=== PATIENT | female | born 1985 | race Caucasian/White ===

== ENCOUNTER 2021-11-30 16:36 | Outpatient (REF) | payer OTHER, SELFPAY ==
--- NOTE | ~2021-11-30 | MR_ITS ---
EXAMINATION: MR BRAIN WITHOUT CONTRAST CLINICAL INFORMATION: Migraine. COMPARISON: None available. TECHNIQUE: MRI of the brain was obtained using routine sequences without contrast. FINDINGS: No focal restricted diffusion is demonstrated to suggest acute or subacute cerebral ischemia. No evidence of acute or chronic hemorrhagic products on heme-sensitive imaging. Normal parenchymal signal characteristics. The ventricles are normal in morphology and size. No abnormal mass effect. No midline shift. Normal appearance of the pituitary gland. Normal positioning of the cerebellar tonsils. Normal arterial and venous vascular flow voids are present. Normal, homogeneous marrow signal. Mild mucosal thickening of the paranasal sinuses. Mild rightward nasal septal deviation. No signal abnormalities within the mastoids. MR/MR head/brain wo con IMPRESSION: 1. No acute intracranial abnormalities. 2. No MRI abnormalities to explain the patient's symptoms.
== END 2021-11-30 16:37 | disposition home or self-care (01) ==
LOC: HO.MRI 16:36
PROVIDERS: Visit Provider Nurse Practitioner Family
DX: G43.009 Migraine without aura, not intractable, without status migrainosus (principal); H53.9 Unspecified visual disturbance
CPT/HCPCS: 70551

== ENCOUNTER 2023-02-04 11:02 | Outpatient (AMB) | payer OTHER, SELFPAY ==
--- NOTE | 2023-02-04 11:30 | MHC.OFFVIS ---
Intake Vital Signs 02/04/23 11:31 Height 5 ft 7 in Weight 134 lb 2 oz BMI 21.0 BP 110/82 Blood Pressure Location Rt brachial Position Sitting Intake Visit Reasons: follow up headache-Confirmed Intake Note: Patient presents for follow up headache. I'm on a new prescription ubrelvy and its working for me. Allergies No Known Allergies Allergy (Verified 02/04/23 11:32) Medication List - Last Reconciled 02/04/23 by ISABELLA Interiano amitriptyline 10 - 20 mg (1 - 2 x 10 mg) PO BEDTIME 30 days levonorgestrel-ethinyl estrad 0.1-20 mg-mcg 1 tab PO DAILY magnesium oxide 400 mg PO BEDTIME 30 days naratriptan take 1/2 - 1 tab at onset of headache; if no relief may repeat 1 tab after at least 4 hrs; max = 2 tabs/24 hrs orally PRN; 30 days naratriptan take 1/2 - 1 tab at onset of headache; if no relief may repeat 1 tab after at least 4 hrs; max = 2 tabs/24 hrs orally PRN; 30 days riboflavin (vitamin B2) 400 mg PO DAILY 30 days rizatriptan 5 - 10 mg (0.5 - 1 x 10 mg) PO Q2H PRN 21 days sumatriptan succinate (Imitrex) take 1 tab at onset of headache; if no relief may repeat 1 tab after at least 2 hrs; max = 4 tabs/24 hr PO topiramate 25 mg PO BID ubrogepant (Ubrelvy) 50 - 100 mg (0.5 - 1 x 100 mg) PO ONCE PRN 30 days zolmitriptan (Zomig) take 1 tab at onset of headache; if no relief, may repeat 1 tab after at least 2 hrs; max = 2 tabs/24 hrs PO 30 days HPI HPI Comments History of Present Illness Details 37-yr-old female presents for f/u visit. Pt denies any significant interval medical changes. Since the last visit, we have made adjustments to her tx plan. she has tried: Topiramate 25mg- caused severe BUE and facial paresthesias. Amitriptyline 10mg- caused morning brain fog/drowsiness. Rizatriptan- caused sedation and jaw pain. Zolmitriptan- caused sedation and jaw pain Naratriptan- caused sedation and jaw pain Ubrelvy has been helpful w/o s/e. Pt reports she is having 3 migraine days per week, may be increased during her menses to 4 days per week. Ubrelvy 1/2 tab is helpful, may need to take another 1/2 tab. She is curious about Nurtec ODT for prevention PFSH Surgical History No history of previous surgery Family History Mother Hypertension Arthritis Father Hypertension Colon polyps Maternal Grandmother Diabetes Social History Household Members: Spouse Household Members Other:: Alcohol intake: current Alcohol intake frequency: a few times a month Patient Tobacco Use Status: Never used Tobacco Review of Systems Const All systems reviewed & are unremarkable except as noted in HPI and below Physical Exam Vital Signs: Last Vital Signs BP 110/82 02/04/23 11:31 BMI result Body Mass Index 21.0 Const General: cooperative and no acute distress Orientation/consciousness: patient oriented x3 HEENT Head: Yes normocephalic Resp Effort & Inspection: normal respiratory effort and able to speak in complete sentences Neuro General: patient oriented x3, gait normal and CN's II-XI intact bilaterally Cognition (Neuro): normal cognition Motor exam (neuro): 5/5 motor strength present throughout Psych Appearance: grossly normal Mental Status: mental status grossly normal Speech and movement: Normal speech and movement present Affect: normal affect Attitude: cooperative Thought process: Normal thought process present Thought content: Normal thought content present Insight: Good insight present (Psych) Judgement: Good judgement present (Psych) Assessment & Plan Assessment & Plan (1) Migraine without aura: Code(s): G43.009 - Migraine without aura, not intractable, without status migrainosus (2) Visual aura: Code(s): H53.9 - Unspecified visual disturbance (3) Raynaud's phenomenon (by history or observed): Comment: fingertips turn blue in the cold Code(s): I73.00 - Raynaud's syndrome without gangrene Plan For acute migraine treatment: Continue Ubrelvy 50-100mg prn, may repeat in 2 hrs (max 200mg/day) Naratriptan- caused sedation and jaw pain OTC Aleve or Advil liquigel sparingly as needed. Previous acute tx trials: Sumatriptan- helps but causes severe jaw pain. Rizatriptan- caused sedation and jaw pain. Zolmitriptan- caused sedation and jaw pain For migraine prevention tx: Riboflavin 400mg qam. Magnesium Oxide 400mg qhs. Trial Propranolol 10mg bid- monitor for bradycardia, lightheadedness, fatigue, Previous migraine tx trials- Amitriptyline 10mg- caused morning brain fog/drowsiness. Topiramate 25mg- caused severe BUE and facial paresthesias. Future considerations- CGRP MaB, Nurtec ODT Contraindications- Aimovig- fingertips prone to turning blue when cold. ? For sleep: Monitor sleep f/u in 3-4 months or sooner prn Medications: New propranolol 10 mg PO BID 30 days 60 tabs 3RF Coding Level of Care Code Est Pt Level 4 (15646) Diagnoses Migraine without aura G43.009 Visual aura H53.9 Raynaud's phenomenon (by history or observed) I73.00
[2023-02-04 11:31] VITALS: BP 110/82; BMI 21.0
== END 2023-02-04 12:15 | disposition home or self-care (01) ==
PROVIDERS: PCP Physician Assistant; Visit Provider Nurse Practitioner Family
DX: G43.009 Migraine without aura, not intractable, without status migrainosus (principal); H53.9 Unspecified visual disturbance; I73.00 Raynaud's syndrome without gangrene
CPT/HCPCS: 99214

== ENCOUNTER → 2023-02-04 11:02 | Outpatient (BNVA) | payer OTHER, SELFPAY | PROVIDERS: PCP Physician Assistant; Visit Provider Nurse Practitioner Family ==

== ENCOUNTER → 2023-05-06 08:53 | Outpatient (BNVA) | payer OTHER, SELFPAY | PROVIDERS: PCP Physician Assistant; Visit Provider Nurse Practitioner Family ==

== ENCOUNTER → 2023-08-12 13:47 | Outpatient (BNVA) | payer OTHER, SELFPAY | PROVIDERS: PCP Physician Assistant; Visit Provider Nurse Practitioner Family ==

== ENCOUNTER 2023-09-30 08:17 | Outpatient (AMB) | payer OTHER, SELFPAY ==
[2023-09-30 08:28] VITALS: BMI 21.0
--- NOTE | 2023-09-30 08:28 | A.OFFVIS_ITS ---
Vital Signs 09/30/23 08:28 Height 5 ft 7 in Weight 134 lb BMI 21.0 Intake Visit Reasons: 3 mnts f/u for Headaches-LVM Intake Note: Patient presents for 3 month headaches. Patient had emgality shot here in the office she states when she does get the shot it helps but she states she strats getting tension on neck after 2 days and headache comes back Allergies No Known Allergies Allergy (Verified 09/30/23 08:33) Medication List - Last Reconciled 09/30/23 by ISABELLA Interiano amitriptyline 10 - 20 mg (1 - 2 x 10 mg) PO BEDTIME 30 days galcanezumab-gnlm (Emgality Pen) 240 mg (2 mL) subcut ONCE 30 days levonorgestrel-ethinyl estrad 0.1-20 mg-mcg 1 tab PO DAILY magnesium oxide 400 mg PO BEDTIME 30 days naratriptan take 1/2 - 1 tab at onset of headache; if no relief may repeat 1 tab after at least 4 hrs; max = 2 tabs/24 hrs orally PRN; 30 days naratriptan take 1/2 - 1 tab at onset of headache; if no relief may repeat 1 tab after at least 4 hrs; max = 2 tabs/24 hrs orally PRN; 30 days propranolol 10 mg PO BID 30 days riboflavin (vitamin B2) 400 mg PO DAILY 30 days rizatriptan 5 - 10 mg (0.5 - 1 x 10 mg) PO Q2H PRN 21 days sumatriptan succinate (Imitrex) take 1 tab at onset of headache; if no relief may repeat 1 tab after at least 2 hrs; max = 4 tabs/24 hr PO topiramate 25 mg PO BID ubrogepant (Ubrelvy) 50 - 100 mg (0.5 - 1 x 100 mg) PO ONCE PRN 30 days zolmitriptan (Zomig) take 1 tab at onset of headache; if no relief, may repeat 1 tab after at least 2 hrs; max = 2 tabs/24 hrs PO 30 days HPI Comments Details: 38-yr-old female presents for f/u visit. Pt denies any significant interval medical changes. Since the last vii, pt was tried on Emgality (sample loading dose and 2nd injection via co-pay assistance program) for worsening migraine attacks. She tried Propranolol- did not help and did not tolerate. She is still having a few migraines per month, notes some in the days following the Emgality injection. She is curious about qulipta. She continues to exercise regularly. Ubrelvy is helpful as needed. [facility] Surgical History No history of previous surgery Family History Mother Hypertension Arthritis Father Hypertension Colon polyps Maternal Grandmother Diabetes Social History Household Members: Spouse Household Members Other:: Alcohol intake: current Alcohol intake frequency: a few times a month Patient Tobacco Use Status: Never used Tobacco Physical Exam Vital Signs: BMI result Body Mass Index 21.0 Const General: cooperative and no acute distress Orientation/consciousness: patient oriented x3 Resp Effort & Inspection: normal respiratory effort and able to speak in complete sentences Neuro General: patient oriented x3 Cranial nerves: Yes CN's II-XII intact bilaterally Cognition (Neuro): normal cognition Psych Appearance: grossly normal Mental Status: mental status grossly normal Speech and movement: Normal speech and movement present Affect: normal affect Attitude: cooperative Assessment & Plan Assessment & Plan (1) Migraine without aura: Code(s): G43.009 - Migraine without aura, not intractable, without status migrainosus Category: Medical (2) Visual aura: Code(s): H53.9 - Unspecified visual disturbance Category: Medical (3) Raynaud's phenomenon (by history or observed): Comment: fingertips turn blue in the cold Code(s): I73.00 - Raynaud's syndrome without gangrene Category: Medical Plan For acute migraine treatment: Continue Ubrelvy 50-100mg prn, may repeat in 2 hrs (max 200mg/day) OTC Aleve or Advil liquigel sparingly as needed. Previous acute tx trials: Sumatriptan- helps but causes severe jaw pain. Rizatri ptan- caused sedation and jaw pain. Zolmitriptan- caused sedation and jaw pain. Naratriptan- caused sedation and jaw pain ? For migraine prevention tx: Riboflavin 400mg qam. Magnesium Oxide 400mg qhs. Stop Propranolol 10mg bid- not tolerated or effective. Continue Emgality 120mg sc q month. If migraine burden does not decrease [id number] dose, then consider alternative. Previous migraine tx trials- Amitriptyline 10mg- caused morning brain fog/drowsiness. Topiramate 25mg- caused severe BUE and facial paresthesias. Propranolol 10mg bid- not tolerated or effective. Future considerations- Qulipta, Nurtec ODT Contraindications- Aimovig- fingertips prone to turning blue when cold. Medications: Discontinued rizatriptan max 2 tabs per day or 4 tabs per week Discontinued Reason: Doctor's Order 5 - 10 mg (0.5 - 1 x 10 mg) PO Q2H 21 days PRN 12 tabs 3RF migraine headache zolmitriptan (Zomig) Discontinued Reason: Doctor's Order take 1 tab at onset of headache; if no relief, may repeat 1 tab after at least 2 hrs; max = 2 tabs/24 hrs PO 30 days 12 tabs 3RF propranolol Discontinued Reason: Patient no longer taking 10 mg PO BID 30 days 60 tabs 3RF naratriptan Discontinued Reason: Doctor's Order take 1/2 - 1 tab at onset of headache; if no relief may repeat 1 tab after at least 4 hrs; max = 2 tabs/24 hrs orally PRN; 30 days 12 tabs 6RF migraine headache naratriptan Discontinued Reason: Doctor's Order take 1/2 - 1 tab at onset of headache; if no relief may repeat 1 tab after at least 4 hrs; max = 2 tabs/24 hrs orally PRN; 30 days 12 tabs 6RF migraine headache amitriptyline Discontinued Reason: Doctor's Order 10 - 20 mg (1 - 2 x 10 mg) PO BEDTIME 30 days 60 tabs 6RF Coding Level of Care Code Est Pt Level 4 (10322) Diagnoses Migraine without aura G43.009 Visual aura H53.9 Raynaud's phenomenon (by history or observed) I73.00
== END 2023-09-30 09:39 | disposition home or self-care (01) ==
PROVIDERS: PCP Physician Assistant; Visit Provider Nurse Practitioner Family
DX: G43.009 Migraine without aura, not intractable, without status migrainosus (principal); H53.9 Unspecified visual disturbance; I73.00 Raynaud's syndrome without gangrene
CPT/HCPCS: 99214

== ENCOUNTER → 2023-09-30 08:17 | Outpatient (BNVA) | payer OTHER, SELFPAY | PROVIDERS: PCP Physician Assistant; Visit Provider Nurse Practitioner Family ==

== ENCOUNTER 2024-04-13 07:59 | Outpatient (AMB) | payer OTHER, SELFPAY ==
--- OUTSIDE RECORDS SUMMARY | 2024-04-13 08:06 | XMS_ITS | Clinical Summary ---
Author Organization [facility] Address [address] [place] [address] Care Team Providers Care Repair Coil Winder Name Role Phone Destiny Mccallum MD Primary Care Prov ider Allergies No known active allergies Medications galcanezumab-gn lm (Emgality Pen) 120 mg/mL injection pen Inject into the skin. Active levonorgestrel- ethinyl estradiol (AVIANE,ALESSE) 0.1-20 mg-mcg per tablet Take 1 Tablet by mouth daily. 4 Active ubrogepant (Ubrelvy) 100 mg tablet TAKE 1/2-1 TAB 1X NEEDED FOR MIGRAINE AT ONSET MAY REPEAT IN 2HRS MAX 2 DAY MAY TAKE W/ IBUPROFEN 4 Active propranoloL (INDERAL) 10 mg tablet TAKE 10 MG ORALLY 2 TIMES A DAY FOR 30 DAYS 3 Active triamcinolone (KENALOG) 0.1 % cream Apply topically 2 times daily. Active fluconazole (DIFLUCAN) 150 mg tablet Take 1 tab PO now and repeat in 3-5 days if needed 3 Active SUMAtriptan (IMITREX) 50 mg tablet TAKE ONE TO TWO TABLETS FOR MIGRAINE AND MAY REPEAT DOSE ONCE AFTER 2 HOURS, IF NEEDED. 2 Active melatonin 3 mg tablet Take 2 Tablets by mouth at bedtime as needed. 1-2 tablets at bedtime Active naproxen sodium (ANAPROX) 110 MG tablet Take by mouth. Once or twice daily Active Active Problems Problem Noted Date Diagnosed Date Migraine 09/26/2021 Immunizations Name Administration Dates Next Due Influenza trivalent, 0.5mL, preservative free (Fluarix; FluLaval; Fluzone) ages 6mo and older (Afluria) 3 years and older 01/25/2018 Influenza, Unspecified 11/22/2018 Tdap Tetanus diptheria acell ular pertussis (Boostrix; Adacel) 7yo and older 03/22/2015 Surgical History Surgery Date Site/Laterality Comments OTHER SURGICAL HISTORY PROCEDURE: DENIES PREVIOUS SURGERY Family History Medical History Relation Name Comments Colon polyps Father Hypertension Father Diabetes Maternal Grandmother Hypertension Mother arthritis Breast cancer Neg Hx Colon cancer Neg Hx Ovarian cancer Neg Hx Uterine cancer Neg Hx Relation Name Status Comments Brother 1 Alive Brother 2 Alive Father Alive Maternal Grandfather Maternal Grandmother Mother Alive Paternal Grandfather Paternal Grandmother Sister Alive Social History Tobacco Use Types Packs/Day Years Used Date Smoking Tobacco: Never Smokeless Tobacco: Never Alcohol Use Standard Drinks/Week Comments Yes 0 (1 standard drink = 0.6 oz pur e alcohol) Comments Unknown Sex and Gender Information Value Date Recorded Sex Assigned at Not on file Legal Sex Female 5:18 AM EST Gender Identity Not on file Sexual Orientation Not on file Obstetrics History Last Filed Vital Signs Vital Sign Reading Time Taken Comments Blood Pressure 136/84 08/27/2023 12:58 PM EDT Pulse 84 08/27/2023 12:58 PM EDT Temperature - - Respiratory Rate - - Oxygen Saturation - - Inhaled Oxygen Concentration - - Weight 60.9 kg (134 lb 3.2 oz) 08/27/2023 12:58 PM EDT Height 170.2 cm (5' 7 ) 08/27/2023 12:58 PM EDT Body Mass Index 21.02 08/27/2023 12:58 PM EDT Plan of Treatment Upcoming Encounters Date Type Department Care Team (Late st Contact Info) Description 08/03/2024 2:00 PM EDT Office Visit Adult Medicine - [facility] [address] [place] [phone] Destiny Mccallum MD [address] [place] [address] Health Maintenance Due Date Last Done Comments COVID-19 Vaccine (#1) 1990 Hepatitis B Vaccines (1 of 3 - 19+ 3-dose series) 2004 Pneumococcal Vaccine: Pediatrics (0 to 5 Years) and At-Risk Patients (6 to 64 Years) (1 of 2 - PCV) 2004 Depression Screening 01/27/2022 HIV Screening 01/27/2022 Hepatitis C Screening 01/27/2022 Social Influencers of Health Screening 01/27/2022 Influenza Vaccine (#1) 2023 9, 01/25/2018 DTaP,Tdap,and Td Vaccines (2 - Td or Tdap) 03/22/2025 03/22/2015 Cervical Cancer Screening: HPV 03/21/2026 03/21/2021 Cholesterol Screening (Lipid Panel) 09/26/2026 09/26/2021 HIB Vaccines Aged Out No longer eligi ble based on patient's age to complete this topic HPV Vaccines Aged Out No longer eligi ble based on patient's age to complete this topic Hepatitis A Vaccines Aged Out No long er eligible based on patient's age to complete this topic IPV Vaccines Aged Out No longer eligi ble based on patient's age to complete this topic MMR Vaccines Aged Out No longer eligi ble based on patient's age to complete this topic Meningococcal ACWY Vaccine Aged Out N o longer eligible based on patient's age to complete this topic Meningococcal B Vacine Aged Out No lo nger eligible based on patient's age to complete this topic RSV Immunization Patients Under 20 months Aged Out No longer eligible b ased on patient's age to complete this topic Varicella Vaccines Aged Out No longer eligible based on patient's age to complete this topic Procedures Procedure Name Priority Date/Time Associated Diagnosis Comments LIPID PANEL Routine 09/26/2021 HM HPV Routine 03/21/2021 from Last 3 Months or Most Recently Relevant to Health Maintenance Results * Lipid panel (09/26/2021) LDL/HDL Ratio 3 0 - 4 Triglycerides 95 0 - 150 mg/dL Cholesterol 189 0 - 200 mg/dL HDL 75 >=40 mg/dL LDL Cholesterol 95 0 - 100 mg/dL Blood Venous blood specimen / Unknown Historical Provider LAB BLOOD ORDERABLES Corina l Result * Cervical Cancer Screening: HPV (03/21/2021) Cervical Cancer Screening: HPV negative, abstracted Historical Provider HEALTH MAINTENANCE Final Result from Last 3 Months or Most Recently Relevant to Health Maintenance Care Teams Repair Coil Winder Relationship Specialty Start Date End Date Destiny Mccallum MD PCP - General 05/30/10
--- NOTE | 2024-04-13 08:13 | MHC.OFFVIS ---
Vital Signs 04/13/24 08:17 Weight 138 lb BP 120/62 Pulse 90 Pulse Source Pulse Oximeter Pulse Oximetry (%) 99 Oxygen Delivery Method Room Air Intake Visit Reasons: Follow up Headaches Accompanied by: Self / Same As Patient Allergies No Known Allergies Allergy (Verified 04/13/24 08:18) Medication List - Last Reconciled 04/13/24 by ISABELLA Interiano atogepant 60 mg PO DAILY 30 days celecoxib (Celebrex) 100 mg PO BID 30 days cyclobenzaprine 5 mg PO BID PRN 30 days levonorgestrel-ethinyl estrad 0.1-20 mg-mcg 1 tab PO DAILY magnesium oxide 400 mg PO BEDTIME 30 days riboflavin (vitamin B2) 400 mg PO DAILY 30 days ubrogepant (Ubrelvy) 50 - 100 mg (0.5 - 1 x 100 mg) PO ONCE PRN 30 days HPI Comments Details: 38-yr-old female presents for f/u visit for migraine and cervicalgia. Pt denies any significant interval medical changes. Since last visit, Emgality was discontinued due to not overly effective, and patient had difficulty with insurance authorization. Patient reports after starting Qulipta 30 mg q.h.s., she had a significant reduction in monthly migraine days and her cervical neck tightness pretty much resolved. She states she is tolerating Qulipta well, takes it at bedtime without difficulty. However, over the winter, she has again had an increase in migraine days, now having 4-5 migraine days per week. She can still be osmophobic to strong smells. She has been able to refill her Ubrelvy, which continues to be helpful for acute migraine treatment. Overall, her neck tightness has been better. She does note slight increase in neck tightness, after she recently when snowmobiling. She does try to pay attention to her posture when doing this. She does note that when snowmobiling, this can exacerbate her Raynaud's symptoms- hands will turn blue, so she is looking into purchasing more when/cold resistant had protection. She does find the Celebrex 100 mg b.i.d. and cyclobenzaprine 5 mg b.i.d. p.r.n. orders to be helpful for neck tightness. She never did start PT, as the neck tightness had improved so much. She continues to exercise regularly. Ubrelvy is helpful as needed. [facility] Surgical History No history of previous surgery Family History Mother Hypertension Arthritis Father Hypertension Colon polyps Maternal Grandmother Diabetes Social History Household Members: Spouse Household Members Other:: Alcohol intake: current Alcohol intake frequency: a few times a month Patient Tobacco Use Status: Never used Tobacco Physical Exam Const General: cooperative and no acute distress Orientation/consciousness: patient oriented x3 Resp Effort & Inspection: normal respiratory effort and able to speak in complete sentences Neuro Other: Mild bilateral posterior cervical tightness without marked tenderness General: patient oriented x3 Cranial nerves: Yes CN's II-XII intact bilaterally Cognition (Neuro): normal cognition Psych Appearance: grossly normal Mental Status: mental status grossly normal Speech and movement: Normal speech and movement present Affect: normal affect Attitude: cooperative Assessment & Plan Assessment & Plan (1) Migraine without aura: Code(s): G43.009 - Migraine without aura, not intractable, without status migrainosus Category: Medical (2) Visual aura: Code(s): H53.9 - Unspecified visual disturbance Category: Medical (3) Raynaud's phenomenon (by history or observed): Comment: fingertips turn blue in the cold Code(s): I73.00 - Raynaud's syndrome without gangrene Category: Medical (4) Cervicalgia: Comment: Likely secondary to migraine Code(s): M54.2 - Cervicalgia Category: Medical Plan For acute migraine treatment: Continue Ubrelvy 50-100mg prn, may repeat in 2 hrs (max 200mg/day) Hold OTC Aleve or Advil liquigel sparingly as needed. Continue Celebrex 100 mg p.o. b.i.d. p.r.n.. Continue cyclobenzaprine 5 mg p.o. b.i.d. p.r.n. cervical muscles spasm/tightness. Previous acute tx trials: Sumatriptan- helps but causes severe jaw pain. Rizatriptan- caused sedation and jaw pain. Zolmitriptan- caused sedation and jaw pain. Naratriptan- caused sedation and jaw pain Future considerations: Reparrisow p.r.n. ? For migraine prevention tx: Resume Riboflavin 400mg qam. Resume Magnesium Oxide 400mg qhs- may help cervical tightness as well Increase Atogepant (Qulipta) from 30mg to 60mg daily at bedtime. Potential side effects include but are not limited to drowsiness, nausea, constipation, weight loss. Previous migraine tx trials- Amitriptyline 10mg- caused morning brain fog/drowsiness. Topiramate 25mg- caused severe BUE and facial paresthesias. Propranolol 10mg bid- not tolerated or effective. Emgality- not fully effective. Future considerations- Botox or Vyepti Contraindications- Aimovig- fingertips prone to turning blue when cold. For Raynaud's symptoms: Wear layers of warm and insulating clothing to protect against prolonged exposure to cold temperatures and strong winds.. Medications: New atogepant 60 mg PO DAILY 30 days 30 tabs 6RF Changed From cyclobenzaprine 5 - 10 mg (1 - 2 x 5 mg) PO BEDTIME 30 days PRN 60 tabs 0RF muscle spasm To cyclobenzaprine 5 mg PO BID 30 days PRN 30 tabs 1RF muscle spasm Refilled riboflavin (vitamin B2) 400 mg PO DAILY 30 days 30 tabs 6RF celecoxib (Celebrex) 100 mg PO BID 30 days 60 caps 6RF magnesium oxide may hold for loose stools 400 mg PO BEDTIME 30 days 30 tabs 6RF Discontinued atogepant (Qulipta) Discontinued Reason: Doctor's Order 30 mg PO DAILY 30 days 30 tabs 6RF G43.009 - Migraine without aura, not intractable, without status migrainosus Resumed ubrogepant (Ubrelvy) take at onset of migraine, may repeat in 2hrs (max 200mg per day) (may take w/ Ibuprofen) 50 - 100 mg (0.5 - 1 x 100 mg) PO ONCE 30 days PRN 16 tabs 6RF migraine headache ubrogepant (Ubrelvy) 50 - 100 mg (0.5 - 1 x 100 mg) PO ONCE 30 days PRN 16 tabs 6RF migraine headache Coding Level of Care Code Est Pt Level 4 (11234) Diagnoses Migraine without aura G43.009 Visual aura H53.9 Raynaud's phenomenon (by history or observed) I73.00 Cervicalgia M54.2
[2024-04-13 08:17] VITALS: BP 120/62; PULSE 90; O2SAT 99
== END 2024-04-13 08:50 | disposition home or self-care (01) ==
PROVIDERS: PCP Physician Assistant; Visit Provider Nurse Practitioner Family
DX: G43.009 Migraine without aura, not intractable, without status migrainosus (principal); H53.9 Unspecified visual disturbance; I73.00 Raynaud's syndrome without gangrene; M54.2 Cervicalgia
CPT/HCPCS: 99214

== ENCOUNTER → 2024-04-13 07:59 | Outpatient (BNVA) | payer OTHER, SELFPAY | PROVIDERS: PCP Physician Assistant; Visit Provider Nurse Practitioner Family ==

== ENCOUNTER 2024-10-12 12:50 | Outpatient (AMB) | payer OTHER, SELFPAY ==
--- OUTSIDE RECORDS SUMMARY | 2021-07-10 14:45 | XMS_ITS | Encounter Summary ---
Author Organization [facility] Address [address] [place] [phone] Phone Care Team Providers Care Geographic Analyst Name Role Phone Destiny Mccallum MD Primary Care Pr ovider Encounter Details Date Type Department Care Team (Late st Contact Info) Description 07/10/2021 2:45 PM EDT Hospital Encounter [facility] [address] [place] [id number] David Calvin PA [address] [place] [phone] [email or web address] Social History Tobacco Use Types Packs/Day Years Used Date Smoking Tobacco: Never Smokeless Tobacco: Never Education Answer Date Recorded Are you interested in more education? Not on kylee e 06/15/2022 Are you concerned about learning? Not on file 06/15/2022 No 06/15/2022 No 06/15/2022 Digital Access Answer Date Recorded No 07/14/2022 No 07/14/2022 No 07/14/2022 Reliable internet access at home? Not on file 07/14/2022 Device with a working camera? Not on file Comments Unknown Sex and Gender Information Value Date Recorded Sex Assigned at Not on file Legal Sex Female 8:13 AM EST Gender Identity Not on file Sexual Orientation Not on file documented as of this encounter Plan of Treatment Not on file documented as of this encounter Procedures Procedure Name Priority Date/Time Associated Diagnosis Comments XR ANKLE 3 OR MORE VIEWS (RIGHT) Urgent/patient waiting 07/10/2021 2:49 PM EDT Sprain of right ankle, unspecified ligament, initial encounter documented in this encounter Results * XR ANKLE 3 OR MORE VIEWS (RIGHT) (07/10/2021 2:49 PM EDT) Anatomical Region Laterality Modality Ankle Right Computed Radiogr aphy 07/10/2021 2:53 PM EDT Impressions 07/10/2021 3:13 PM EDT Soft tissue swelling overlying the lateral malleolus without underlying acute fracture or dislocation. ATTESTATION: Bettie Soria as teaching physician, have reviewed the images for this case and if necessary edited the report originally created by Doug Klein. Narrative 07/10/2021 3:13 PM EDT XR ANKLE 3 OR MORE VIEWS (RIGHT) COMPARISON: None. FINDINGS: No fracture or dislocation. Ill-defined well-corticated subcentimeter bony fragment adjacent to the tip of the medial malleolus, likely representing a remote avulsion fracture. Symmetric ankle mortise. Normal joint spaces. No ankle effusion. Soft tissue swelling overlies the lateral malleolus. Procedure Note Bettie Trujillo MD - 07/10/2021 XR ANKLE 3 OR MORE VIEWS (RIGHT) COMPARISON: None. FINDINGS: No fracture or dislocation. Ill-defined well-corticated subcentimeter bonyfragment adjacent to the tip of the medial malleolus, likely representinga remote avulsion fracture. Symmetric ankle mortise. Normal joint spaces.No ankle effusion. Soft tissue swelling overlies the lateral malleolus. IMPRESSION: Soft tissue swelling overlying the lateral malleolus without underlyingacute fracture or dislocation. ATTESTATION: Bettie Sroia as teaching physician, have reviewed theimages for this case and if necessary edited the report originally createdby Doug Klein. David LEAL IMG XR LOWER EXTREMITY Corina l Result documented in this encounter Visit Diagnoses Not on filedocumented in this encounter Care Teams Geographic Analyst Relationship Specialty Start Date End Date Destiny Mccallum MD [address] [place] [phone] PCP - General Internal Medicine 07/10/21 documented as of this encounter Additional Source Comments The information contained in this document represents components of the legal health record. It is not the complete legal health record.[facility]
--- NOTE | 2024-10-12 12:51 | MHC.OFFVIS ---
Vital Signs 10/12/24 12:54 Height 5 ft 7 in Weight 134 lb BMI 21.0 BP 124/86 Blood Pressure Location Rt brachial Position Sitting Pulse 86 Pulse Source Pulse Oximeter Pulse Oximetry (%) 96 Oxygen Delivery Method Room Air Intake Visit Reasons: 6 mo follow up Intake Note: Patient presents 6 month follow up for migraines Right Of Way Manager Required: No Accompanied by: Self / Same As Patient Allergies No Known Allergies Allergy (Verified 10/12/24 12:52) Medication List - Last Reconciled 10/12/24 by ISABELLA Interiano atogepant 60 mg PO DAILY 30 days celecoxib (Celebrex) 100 mg PO BID 30 days cyclobenzaprine 5 mg PO BID PRN 30 days levonorgestrel-ethinyl estrad 0.1-20 mg-mcg 1 tab PO DAILY ubrogepant (Ubrelvy) 50 - 100 mg (0.5 - 1 x 100 mg) PO ONCE PRN 30 days HPI Comments Details: 39-yr-old female presents for f/u visit for migraine and cervicalgia. Pt denies any significant interval medical changes. Since the last visit, the patient had had difficulty obtaining a preventive all their migraine medication due to insurance limitations. However, recently the patient was approved for Qulipta 60 mg daily, which she states is very effective, now having less than 3 migraine days per month. She adjusted her riboflavin and magnesium to an OTC migraine relief supplement, which he is taking 1 cap twice a day, and finds this to be very helpful. She has stopped Ubrelvy, which was effective and well-tolerated; however, her insurance will not cover the Ubrelvy while she is also taking Qulipta. She has not needed to take the as-needed cyclobenzaprine, Celebrex. She is using an OTC sleep supplement, Zonked, which is helpful for sleep. No recent Raynaud's symptoms; however, she has plans when winter comes to make sure her extremities stay warm, especially during cold-weather activities or when her office becomes colder. [facility] Surgical History No history of previous surgery Family History Mother Hypertension Arthritis Father Hypertension Colon polyps Maternal Grandmother Diabetes Social History Household Members: Spouse Household Members Other:: Alcohol intake: current Alcohol intake frequency: a few times a month Patient Tobacco Use Status: Never used Tobacco Physical Exam Vital Signs: Last Vital Signs Pulse 86 10/12/24 12:54 BP 124/86 10/12/24 12:54 Pulse Ox 96 10/12/24 12:54 Oxygen Delivery Method Room Air 10/12/24 12:54 BMI result Body Mass Index 21.0 Const General: cooperative and no acute distress Orientation/consciousness: patient oriented x3 Resp Effort & Inspection: normal respiratory effort and able to speak in complete sentences Neuro Other: Mild bilateral posterior cervical tightness without marked tenderness General: patient oriented x3 Cranial nerves: Yes CN's II-XII intact bilaterally Cognition (Neuro): normal cognition Psych Appearance: grossly normal Mental Status: mental status grossly normal Speech and movement: Normal speech and movement present Affect: normal affect Attitude: cooperative Assessment & Plan Assessment & Plan (1) Migraine without aura: Code(s): G43.009 - Migraine without aura, not intractable, without status migrainosus Category: Medical Qualifiers: Status migrainosus presence: without status migrainosus Intractability: not intractable Qualified Code(s): G43.009 - Migraine without aura, not intractable, without status migrainosus (2) Visual aura: Code(s): H53.9 - Unspecified visual disturbance Category: Medical (3) Raynaud's phenomenon (by history or observed): Comment: fingertips turn blue in the cold Code(s): I73.00 - Raynaud's syndrome without gangrene Category: Medical (4) Cervicalgia: Comment: Likely secondary to migraine Code(s): M54.2 - Cervicalgia Category: Medical Plan For acute migraine treatment: Discontinue the Ubrelvy 50-100mg prn, may repeat in 2 hrs (max 200mg/day)- only because pt's insurance company has a policy not allowing payment for a CGRP antagonist if pt is taking another CGRP antagonist- noting that their policy is not based on current evidence or clinical practice. May use OTC Aleve or Advil liquigel sparingly as needed. Continue Celebrex 100 mg p.o. b.i.d. p.r.n.. Continue cyclobenzaprine 5 mg p.o. b.i.d. p.r.n. cervical muscles spasm/tightness. Previous acute tx trials: Sumatriptan- helps but causes severe jaw pain. Rizatriptan- caused sedation and jaw pain. Zolmitriptan- caused sedation and jaw pain. Naratriptan- caused sedation and jaw pain Future considerations: Reyvow p.r.n. ? For migraine prevention tx: Continue Migrelief (B2 400mg and Mag 360mg ox/citrate per 2 caps)) 1 bid- may help cervical tightness as well Continue Atogepant (Qulipta) 60mg daily at bedtime. Previous migraine tx trials- Amitriptyline 10mg- caused morning brain fog/drowsiness. Topiramate 25mg- caused severe BUE and facial paresthesias. Propranolol 10mg bid- not tolerated or effective. Emgality- not fully effective. Future considerations- Botox or Vyepti Contraindications- Aimovig- fingertips prone to turning blue when cold. For Raynaud's symptoms: Continue to monitor. Wear layers of warm and insulating clothing to protect against prolonged exposure to cold temperatures and strong winds. Pt to follow-up in 6 months or sooner prn. Medications: New [Zonked- CBN, melatonin, CBD, THC] PO BEDTIME Coding Level of Care Code Est Pt Level 4 (55079) Diagnoses Migraine without aura and without status migrainosus, not intractable G43.009 Status migrainosus presence: without status migrainosus Intractability: not intractable Visual aura H53.9 Raynaud's phenomenon (by history or observed) I73.00 Cervicalgia M54.2
[2024-10-12 12:54] VITALS: BP 124/86; PULSE 86; O2SAT 96; BMI 21.0
--- OUTSIDE RECORDS SUMMARY | 2024-10-12 13:59 | XMS_ITS | Clinical Summary ---
Author Organization [facility] [address] [facility] lding Address [address] [place] [address] Phone Care Team Providers Care Cable Tester Name Role Phone Destiny Mccallum MD Primary Care Prov ider Allergies No known active allergies Medications ubrogepant (Ubrelvy) 100 mg tablet TAKE 1/2-1 TAB 1X NEEDED FOR MIGRAINE AT ONSET MAY REPEAT IN 2HRS MAX 2 DAY MAY TAKE W/ IBUPROFEN 4 Active triamcinolone (KENALOG) 0.1 % cream Apply topically 2 times daily. Active levonorgestrel-eth inyl estradiol (Vienva) 0.1-20 mg-mcg per tabletIndications: Encounter for surveillance of contraceptive pills Take 1 tablet by mouth 1 (one) time each day. 84 tablet 1 5 Active Qulipta 60 mg tablet 5 Active Active Problems Problem Noted Date Diagnosed Date Migraine 09/26/2021 Encounters Date Type Department Care Team Description 09/07/2024 1:30 PM EDT Office Visit Adult Medicine - [place] [address] [place] [id number] Salma Zavaleta PA Routine general medical examination at a health care facility (Primary Dx); Encounter for surveillance of contraceptive pills; Other migraine without status migrainosus, not intractable from Last 3 Months Immunizations Name Administration Dates Next Due Influenza [...] drink = 0.6 oz pur e alcohol) Housing Instability Answer Date Recorde d Are you worried that in the next 2 months you may not have stable housing? No 07/08/2024 Food Access & Nutrition Answer Date Rec orded Do you have access to a vari ety of food including fruits and vegetables? Yes 07/08/2024 Access to Healthcare Answer Date Record ed Within the last 3 months, ho w many times did you visit the emergency department for your medical care? 0 07/08/2024 Health Literacy Answer Date Recorded How often do you need to hav e someone help you when you read instructions, pamphlets, or other written material from your doctor or pharmacy? Never 07/08/2024 Caregiver: How often do you need to have someone help you when you read instructions, pamphlets, or other written material from your doctor or pharmacy? Not on file 07/08/2024 Financial Risk Answer Date Recorded How hard is it for you to pa y for the very basics like food, housing, medical care, and air conditioning / heating? Not very hard 07/08/2024 Transportation Answer Date Recorded Has the lack of transportati on kept you from meetings, work, or from getting things needed for daily living? No Has the lack of transportati on kept you from medical appointments or from getting medications? No 07/08/2024 Social Isolation Answer Date Recorded How often do you feel lonely or isolated from th ose around you? Never 07/08/2024 Food Risk Answer Date Recorded Within the past 12 months we worried whether our food would run out before we got money to buy more. Never true 07/08/2024 Within the past 12 months th e food we bought just didn't last and we didn't have money to get more. Never true 07/08/2024 Dependent Care Answer Date Recorded Do you need help finding or paying for care for your loved ones. For example, children's author or elderly care for an older adult? No 07/08/2024 Education Answer Date Recorded Do you think completing more education or training, like finishing a GED, going to college, or learning a trade, would be helpful for you? N/A 07/08/2024 Employment and Income Answer Date Recor ded During the last four weeks, have you been actively looking for work? No 07/08/2024 Living Situation Answer Date Recorded What is your living situation? 0 07/08/2024 Comments Unknown Sex and Gender Information Value Date Recorded Sex Assigned at Not on file Legal Sex Female 5:18 AM EST Gender Identity Not on file Sexual Orientation Not on file Obstetrics History Last Filed Vital Signs Vital Sign Reading Time Taken Comments Blood Pressure 126/78 09/07/2024 1:25 PM EDT Pulse 75 09/07/2024 1:25 PM EDT Temperature 36.7 C (98 F) 09/07/2024 1:25 PM EDT Respiratory Rate - - Oxygen Saturation - - Inhaled Oxygen Concentration - - Weight 61.2 kg (135 lb) 09/07/2024 1:25 PM EDT Height 170.2 cm (5' 7 ) 09/07/2024 1:25 PM EDT Body Mass Index 21.14 09/07/2024 1:25 PM EDT Plan of Treatment Upcoming Encounters Date Type Department Care Team (Late st Contact Info) Description 01/20/2025 1:30 PM EST Office Visit Obstetrics and Gynecology [address] [id number] Kimberly Rojas, MILENA [address] [place] [address] Health Maintenance Due Date Last Done Comments Hepatitis B Vaccines (1 of 3 - 19+ 3-dose series) 2004 HIV Screening 01/27/2022 Hepatitis C Screening 01/27/2022 COVID-19 Vaccine (2 - 2023-2 5 season) 2023 12/20/2022 Influenza Vaccine (#1) 2024 9, 01/25/2018 DTaP,Tdap,and Td Vaccines (2 - Td or Tdap) 03/22/2025 03/22/2015 Social Influencers of Health Screening 07/08/2025 07/08/2024 Cervical Cancer Screening: HPV 03/21/2026 03/21/2021 Cholesterol Screening (Lipid Panel) 09/26/2026 09/26/2021 Depression Screening Completed 07/08/2024 HIB Vaccines Aged Out No longer eligi [...] age to complete this topic Meningococcal B Vaccine Aged Out No l onger eligible based on patient's age to complete this topic Pneumococcal Vaccine: Pediatrics (0 to 5 Years) and At-Risk Patients (6 to 49 Years) Aged Out No longer eligible b ased [...] or Most Recently Relevant to Health Maintenance Insurance [facility] [place] [id number] Care Teams Cable Tester Relationship Specialty Start Date End Date Destiny Mccallum MD [address] [place] [id number] PCP - General 05/30/10
== END 2024-10-12 13:49 | disposition home or self-care (01) ==
LOC: HO.HSMS 12:51
PROVIDERS: PCP Physician Assistant; Visit Provider Nurse Practitioner Family
DX: G43.009 Migraine without aura, not intractable, without status migrainosus (principal); H53.9 Unspecified visual disturbance; I73.00 Raynaud's syndrome without gangrene; M54.2 Cervicalgia
CPT/HCPCS: 99214